=== PATIENT | female | born 1975 | race Caucasian/White ===

== ENCOUNTER 2022-11-14 15:46 | Inpatient (IN) | payer MEDICAID ==
[~2022-11-14] VITALS: Ht 170.2 cm; Wt 112.5 kg
[2022-11-14] MEDS ORDERED: LORazepam 1 MG tablet PO ONE (15:55)
[2022-11-14 16:14] LABS: BASOPHILS % (AUTO) 0.6 % (0-1); EOSINOPHILS # (AUTO) 0.1 X10'3 (0-0.9); EOSINOPHILS % (AUTO) 1.9 % (0-6); HEMATOCRIT 41.7 % (35.0-45.0); HEMOGLOBIN 13.7 g/dl (12.0-16.0); LYMPHOCYTES # (AUTO) 1.4 X10'3 (1.1-4.8); LYMPHOCYTES % (AUTO) 19.4 % (21-51); MEAN CORPUSCULAR HEMOGLOBIN 29.8 PG (27.0-31.0); MEAN CORPUSCULAR HGB CONC 32.9 g/dL (33.0-36.5); MEAN CORPUSCULAR VOLUME 90.6 FL (78-98); MEAN PLATELET VOLUME 6.4 FL (7.4-10.4); MONOCYTES # (AUTO) 0.6 X10'3 (0-0.9); MONOCYTES % (AUTO) 7.8 % (2-12); NEUTROPHILS % (AUTO) 70.3 % (42-75); PLATELET COUNT 322 X10'3 (140-440); RED CELL DISTRIBUTION WIDTH 14.3 % (11.5-14.5); WHITE BLOOD COUNT 7.1 X10'3 (4.5-11.0)
[2022-11-14 16:30] LABS: COVID19 ANTIGEN BINAX NEGATIVE (NEGATIVE)
[2022-11-14 16:31] LABS: ALANINE AMINOTRANSFERASE 11 U/L (12-78); ALBUMIN 3.4 G/DL (3.4-5.0); ALBUMIN/GLOBULIN RATIO 0.9 (1.1-1.5); ALKALINE PHOSPHATASE 102 IU/L (46-116); ANION GAP 2 (8-16); ASPARTATE AMINO TRANSFERASE 12 U/L (10-37); BILIRUBIN,TOTAL 0.3 MG/DL (0.1-1.0); BLOOD UREA NITROGEN 10 MG/DL (7-18); BUN/CREATININE RATIO 13.2 (10.0-20.0); CALCIUM 9.4 MG/DL (8.5-10.1); CHLORIDE 105 MMOL/L (99-107); CREATININE 0.76 MG/DL (0.40-0.90); GLUCOSE 108 MG/DL (70-104); POTASSIUM 4.8 MMOL/L (3.5-5.1); SODIUM 138 MMOL/L (135-145); TOTAL CARBON DIOXIDE 31.5 MMOL/L (24-32); TOTAL PROTEIN 7.3 G/DL (6.4-8.2); eCRCL 85 ML/MIN; eGFR 81 ML/MIN
[2022-11-14 16:40] LABS: ETHANOL < 0.010 GM/DL (0.0-0.010); THYROID STIMULATING HORMONE 0.55 ulU/ml (0.34-4.50)
[2022-11-14] MEDS: OLANZapine 2.5MG tablet PO SCH (16:46)
--- NOTE | 2022-11-14 17:00 | NUR ---
pt went to use the restroom ,forgot about the urine cup ,informed the pt ua is still pending.
--- NOTE | 2022-11-14 18:44 | NUR ---
ASSUMED CARE OF PT FROM RN. PT IS SLEEPING IN THE [facility].
--- NOTE | 2022-11-14 20:15 | NUR ---
PT AWOKE, WALKED TO THE BATHROOM AND GAVE A URINE SAMPLE.
[2022-11-14 20:21] LABS: BILIRUBIN,URINE NEGATIVE (Neg); CLARITY,URINE CLEAR (Clear); COLOR,URINE STRAW (Yellow); GLUCOSE, URINE NEGATIVE (Neg); KETONES,URINE NEGATIVE (Neg); LEUKOCYTE ESTERASE ,URINE NEGATIVE (Neg); NITRITES, URINE NEGATIVE (Neg); OCCULT BLOOD,URINE NEGATIVE (Neg); PROTEIN,URINE NEGATIVE (Neg); URINE HCG NEGATIVE (NEG); UROBILINOGEN,URINE 0.2 E.U/dL (0.2-1.0)
[2022-11-14 20:27] LABS: UA COLLECTION TYPE CLN CATCH MIDSTREAM
[2022-11-14 20:39] LABS: URINE AMPHETAMINE SCREEN POSITIVE (Neg); URINE BARBITUATE SCREEN NEGATIVE (Neg); URINE BENZODIAZEPINES SCREEN NEGATIVE (Neg); URINE CANNABINOID SCREEN POSITIVE (Neg); URINE COCAINE SCREEN NEGATIVE (Neg); URINE METHADONE SCREEN NEGATIVE (Neg); URINE OPIATE SCREEN NEGATIVE (Neg); URINE PHENCYCLIDINE SCREEN NEGATIVE (Neg)
--- NOTE | 2022-11-14 21:00 | NUR ---
Patient was walked over to bed 25. Patient immediately went to bed and to sleep. No distress noted.
[2022-11-14] MEDS ORDERED: NO HOME MEDS CO (21:04)
--- NOTE | 2022-11-14 23:51 | NUR ---
Client is resting. Resp even and unlabored.
--- NOTE | 2022-11-15 01:30 | NUR ---
PACKET SENT TO [facility]
--- NOTE | 2022-11-15 03:59 | NUR ---
Patient is sleeping in bed. Respirations are even and nonlabored.
--- NOTE | 2022-11-15 05:31 | NUR ---
Patient continues to sleep through the night. Respirations are even and unlabored.
--- NOTE | 2022-11-15 06:39 | NUR ---
Pt resting comfortable in bed asleep. No distress noted at this time.
[2022-11-15] MEDS: OLANZapine 2.5MG tablet PO SCH (08:45)
--- NOTE | 2022-11-15 09:28 | NUR ---
Pt resting in bed comfortable. Pt took morning meds with no issues. [facility] tray arrived tech woke pt up, pt stayed laying down in bed. Breakfast tray is currently still at bedside while pt sleeps.
--- NOTE | 2022-11-15 11:33 | NUR ---
Pt resting comfortable in bed. No distress noted at this time.
--- NOTE | 2022-11-15 13:03 | NUR ---
Pt resting in bed comfortable. Lunch tray at bedside, woke pt to see if she wanted to eat. Pt stated she isnt hungry, tray left at bedside incase she changes her mind.
--- NOTE | 2022-11-15 15:24 | NUR ---
Admit note: [facility] from our ER overflow for DTS at 1505. Pt presents as tearful and anxious. She reports increasing voices that tell her she "should not be here" and that everyone would be better off." She reports a suicide attempt last week and fears she will attempt again. Pt has history of Bipolar. Addendum: 11/15/22 at 1638 by Bee Rosario RN Pt. currently denies any S/I, but scores a high risk on the [place] Suicide Risk Assessment. This was endorsed to Magno Huddleston 15min safety checks were ordered.
[2022-11-15 15:27] VITALS: BP 97/64; PULSE 70; RESP 16; TEMP 98.6; O2SAT 100
[2022-11-15] MEDS ORDERED: magnesium hydroxide 30ml (MOM) UD suspension PO PRN (15:45)
[2022-11-15] MEDS ORDERED: loperamide 2mg capsule PO PRN (15:45)
[2022-11-15] MEDS ORDERED: mag hydrox/Alum hydrox/simeth 30ml oral suspension PO PRN (15:45)
[2022-11-15 15:51] VITALS: RESP 16; O2SAT 100
[2022-11-15 19:00] VITALS: BP 106/73; PULSE 66; RESP 14; RESP 16; TEMP 99.2; O2SAT 100
--- NOTE | 2022-11-16 05:11 | NUR ---
Nursing Progress Note: Aster Problem. Pt admitted to [facility] today on 5150 from our ER overflow for DTS at 1505. Pt presents as tearful and anxious. She reports increasing voices that tell her she "should not be here" and that everyone would be better off." She reports a suicide attempt last week and fears she will attempt again. Pt has history of Bipolar. Interventions: 1:1 assessment ,establishment of rapport, therapeutic communication, active listening, ensured contract for safety, medication administration/education/monitoring, provided distraction, direction, positive reinforcement, and Q15 minute safety checks. Response: Patient was found sleeping in room at change of shift. Patient continued to self-isolate and sleep through out shift. Patient was polite and cooperative with care. Patient denies VH but acknowledges AH telling her to harm herself. Patient requested no prns and did not get up to participate in snacks or activates. Plan: Pt is in need of medication adjustment and monitoring in a safe and therapeutic environment until stable
[2022-11-16 07:00] VITALS: RESP 12; O2SAT 99
[2022-11-16 08:00] VITALS: BP 115/74; PULSE 91; RESP 12; TEMP 98.4; O2SAT 99
[2022-11-16] MEDS: OLANZapine 2.5MG tablet PO SCH (08:53)
[2022-11-16] MEDS: acetaminophen 325mg tablet PO PRN (08:54)
[2022-11-16] MEDS: nicotine 7mg patch - 24hr TD SCH (08:55)
[2022-11-16 09:00] LABS: CHOL/HDL RATIO 4.6 (0.00-4.99); CHOLESTEROL 192 MG/DL (0-200); HDL CHOLESTEROL 42 MG/DL (35-60); LDL CHOLESTEROL 121 MG/DL (50-100); TRIGLYCERIDES 93 MG/DL (20-135)
[2022-11-16 09:30] LABS: HEMOGLOBIN A1C 6.2 % (4.5-6.2)
--- NOTE | 2022-11-16 09:41 | NUR ---
Critical lab: PT is MRSA positive. Pt educated on handwashing to prevent the spread of MRSA.
--- NOTE | 2022-11-16 12:58 | NUR ---
Pt. has reddened raised bumps on her inner labia. This area was assessed by Dr. Brewer who recommends pt. shower frequently to keep area clean and no scratching area. Pt. reported understanding and pictures were taken of area and placed in pt's chart. Dr. Brewer will also be entering some other orders to assess what could possibly be causing this. Will continue to monitor pt. closely.
--- NOTE | 2022-11-16 14:50 | NUR ---
Malnutrition consult: Pt reports 34 lb or more wt loss with decreased appetite/PO intake per malnutrition risk screen with RN. No scaled wt hx in EMR, current scaled wt is appropriate and 101% IBW. Pt on a regular diet and averaging 50% PO intake of first three meals which meets 80% estimated energy needs and 100% estimated protein needs. Pt with no documented decrease in muscle strength or edema. Pt currently lacks a minimum of two criteria for malnutrition though will continue to follow and monitor s/s of malnutrition. Addendum: 11/16/22 at [address] Amended: Links added.
--- NOTE | 2022-11-16 16:47 | NUR ---
Nursing Progress Note: Problem : Pt admitted to [facility] today on 5150 from our ER overflow for DTS at 1505. Pt presents as tearful and anxious. She reports increasing voices that tell her she "should not be here" and that everyone would be better off." She reports a suicide attempt last week and fears she will attempt again. Pt has history of Bipolar. Interventions : Maintained a safe and supportive environment, ensured contract for safety, provided clear and simple instructions, provided active listening and positive encouragement, and maintained Q 15min safety checks. Response : Received pt. sleeping in bed at the beginning of the shift, she was awoken to attend breakfast in the group room and afterwards retreated back to bed where she continued to isolate throughout the shift. 1:1 was completed at bedside, pt. presents as somewhat anxious and tearful. She denies any current S/I, but endorses ongoing A/NAVARRO. Pt. states, "They're going to get me." When questioned regarding any thoughts that others may want to hurt her, pt. denies this and stated, "No, the voices are the only ones that want to do that." Pt. also endorses anxiety regarding being on the unit, her unknown future regarding a place to live, and worries that her dog is not being taken care of. This adjusto writer operator supervised pt. while she got numbers off her cell phone to call her friend to make sure that they were taking care of her dog and she reported contentment. Pt. was administered PRN Tylenol for a h/a with effectiveness. Pt. isolated in her room napping throughout much of the shift. Plan : Pt. requires interruption of current crisis and a safe and supportive environment.
[2022-11-16 19:00] VITALS: BP 117/69; PULSE 85; RESP 14; TEMP 98.5; O2SAT 99
--- NOTE | 2022-11-17 04:46 | NUR ---
Nursing Progress Note: Problem : Pt admitted to [facility] today on 5150 from our ER overflow for DTS at 1505. Pt presents as tearful and anxious. She reports increasing voices that tell her she "should not be here" and that everyone would be better off." She reports a suicide attempt last week and fears she will attempt again. Pt has history of Bipolar. Interventions : Maintained a safe and supportive environment, ensured contract for safety, provided clear and simple instructions, provided active listening and positive encouragement, and maintained Q 15min safety checks. Response : Patient was found laying in bed at beginning of shift. Patient eventually left room and sat quietly in community room. Patient continued to self isolate and spoke very little to nurse. Patient did state she was hearing voices and was hoping being out of her room would help. Patient also acknowledged having suicidal ideations. Patient did not requested any prns. Plan : Pt. requires interruption of current crisis and a safe and supportive environment.
[2022-11-17 07:00] VITALS: RESP 14; O2SAT 100
[2022-11-17 08:00] VITALS: BP 110/70; PULSE 76; RESP 14; TEMP 98.4; O2SAT 100
[2022-11-17] MEDS: OLANZapine 2.5MG tablet PO SCH (08:32)
[2022-11-17] MEDS: nicotine 7mg patch - 24hr TD SCH (08:33)
[2022-11-17] MEDS: acetaminophen 325mg tablet PO PRN ×2 (08:34→20:27)
[2022-11-17] MEDS ORDERED: ESCITALOPRAM OXALATE 5 MG TABLET PO ONE (11:00)
--- NOTE | 2022-11-17 14:41 | NUR ---
Nursing Progress Note: Problem : Pt admitted to [facility] today on 5150 from our ER overflow for DTS at 1505. Pt presents as tearful and anxious. She reports increasing voices that tell her she "should not be here" and that everyone would be better off." She reports a suicide attempt last week and fears she will attempt again. Pt has history of Bipolar. Interventions : Maintained a safe and supportive environment, ensured contract for safety, provided clear and simple instructions, provided active listening and positive encouragement, encouraged participation on the unit, and maintained Q 15min safety checks. Response : Received pt. sleeping in bed at the beginning of the shift, she was awoken to attend breakfast in the group room and afterwards retreated back to bed as is her routine. 1:1 was completed at bedside, pt. presents as cooperative, anxious, tearful, guarded, and isolative. She continues to deny any S/I, but endorses ongoing A/NAVARRO. When questioned by this senior mortgage underwriter regarding the content of these voices, pt. stated tearfully, "They say you guys aren't going to help me and I'll have to go back to the same place." This senior mortgage underwriter provided active listening and positive encouragement to pt. regarding working with her social economist on Saturday to find possible alternate housing and she reported contentment. Pt. stated, "I just want to go get my dog and get out of there." Pt. was administered PRN Tylenol for a h/a with effectiveness. She again isolated in her room napping throughout much of the shift. Pt. was provided ongoing education on handwashing r/t MRSA positive nasal swab. Plan : Pt. requires medication adjustments and a safe and supportive environment.
[2022-11-17 19:30] VITALS: RESP 16; O2SAT 95
[2022-11-17 20:15] VITALS: BP 106/80; PULSE 87; RESP 16; TEMP 99.1; O2SAT 99
[2022-11-17] MEDS: traZODone 50mg tablet PO SCH (20:27)
[2022-11-17] MEDS: PALIPERIDONE 3 MG TAB.ER.24 PO SCH (20:27)
[2022-11-17] MEDS: LORazepam 0.5 MG tablet PO PRN (20:27)
--- NOTE | 2022-11-18 05:03 | NUR ---
Nursing Progress Note: Problem : Pt admitted to [facility] on 5150 from our ER overflow for DTS at 1505. Pt presents as tearful and anxious. She reports increasing voices that tell her she "should not be here" and that everyone would be better off." She reports a suicide attempt last week and fears she will attempt again. Pt has history of Bipolar. Interventions : Maintained a safe and supportive environment, ensured contract for safety, provided clear and simple instructions, provided active listening and positive encouragement, encouraged participation on the unit, and maintained Q 15min safety checks. Response : Upon turn of shift noted patient lying in bed sleeping. During 1:1 patient denies having SI, HI and VH. AH noted but reports, not as much as they were but they wake me up. Patient reports that when the voices talk, in her head she stomps her feet in her mind and screams at them to stop. No voices this shift. Patient appears to be tired and expresses wanting to sleep a lot. Informed nurse that she lives with her ex gf and its not a good situation. Slept well this shift. Compliant with HS meds. PRN Ativan and Desyrel. Nicotine patch removed. Will continue to monitor. Plan : Pt. requires medication adjustments and a safe and supportive environment.
[2022-11-18] MEDS: OLANZapine 2.5MG tablet PO SCH (07:43)
[2022-11-18] MEDS: nicotine 7mg patch - 24hr TD SCH (07:43)
[2022-11-18] MEDS: ESCITALOPRAM OXALATE 5 MG TABLET PO SCH (07:43)
[2022-11-18 08:14] VITALS: BP 119/87; PULSE 78; RESP 16; TEMP 98.2; O2SAT 99
--- NOTE | 2022-11-18 14:06 | NUR ---
Nursing Progress Note: Problem : [facility]150 from our ER overflow for DTS at 1505. Pt presents as tearful and anxious. She reports increasing voices that tell her she "should not be here" and that everyone would be better off." She reports a suicide attempt last week and fears she will attempt again. Pt has history of Bipolar. Interventions : Maintained a safe and supportive environment, ensured contract for safety, provided clear and simple instructions, provided active listening and positive encouragement, encouraged participation on the unit, and maintained Q 15min safety checks. Response : Pt asleep at change of shift. Pt has 5250 written today. Pt is calm accepting the paperwork. Pt denies any medical issues today. Pt spends more time outside of room in the group room today than previous days. Pt continues feeling depressed and feels scared due to her voices. Plan : Pt. requires medication adjustments and a safe and supportive environment.
[2022-11-18] MEDS: LORazepam 0.5 MG tablet PO PRN (16:57)
[2022-11-18 19:45] VITALS: RESP 16; O2SAT 99
[2022-11-18] MEDS: PALIPERIDONE 3 MG TAB.ER.24 PO SCH (19:46)
[2022-11-18] MEDS: traZODone 50mg tablet PO SCH (19:46)
[2022-11-18 20:00] VITALS: TEMP 98.8
[2022-11-18 21:28] VITALS: BP 107/70; PULSE 102; RESP 16; TEMP 98.8; O2SAT 99
--- NOTE | 2022-11-19 04:11 | NUR ---
Nursing Progress Note: Problem : Pt admitted to [facility] today on 5150 from our ER overflow for DTS at 1505. Pt presents as tearful and anxious. She reports increasing voices that tell her she "should not be here" and that everyone would be better off." She reports a suicide attempt last week and fears she will attempt again. Pt has history of Bipolar. Interventions : Maintained a safe and supportive environment, ensured contract for safety, provided clear and simple instructions, provided active listening and positive encouragement, encouraged participation on the unit, and maintained Q 15min safety checks. Response : Upon arrival to shift noted patient patient lying in bed sleeping. Hair disheveled During 1:1 denies SI, HI, and VH. Reports the AH are present and are telling her, Im mad. Theyre going to help me. You shouldnt be alive. Reports being able to shut the voices down by telling them to stop. Med compliant. No PRNs given. Nicotine patch removed. Slept well this shift. Will continue to monitor. Plan : Pt. requires medication adjustments and a safe and supportive environment.
[2022-11-19 07:00] VITALS: RESP 17; O2SAT 100
[2022-11-19 08:00] VITALS: BP 115/76; PULSE 84; RESP 17; TEMP 97.8; O2SAT 100
[2022-11-19] MEDS: ESCITALOPRAM OXALATE 5 MG TABLET PO SCH (08:23)
[2022-11-19] MEDS: nicotine 7mg patch - 24hr TD SCH (08:23)
[2022-11-19] MEDS: OLANZapine 2.5MG tablet PO SCH (08:23)
[2022-11-19] MEDS: LORazepam 0.5 MG tablet PO PRN ×2 (12:45→20:30)
--- NOTE | 2022-11-19 13:47 | NUR ---
5250 upheld for DTS
--- NOTE | 2022-11-19 14:46 | NUR ---
Aster requested assistance with housing. Informed her of [facility] as an option upon discharge. She was agreeable to a referral. Completed and sent [facility] referral. VIVIENNE Brandt
--- NOTE | 2022-11-19 15:43 | NUR ---
RN TC: Pt requesting lower carb diet and MD agreeable RN requests RD input. Noted pt A1C 6.2% which appears to be taken after eating breakfast. YANIQUE d/w RN recommends not restricting CHO intake given A1C and last Glu check 11/14 108mg/dl but since pt/MD requests carb controlled diet would be appropriate given current ~75-100% intake trends. Addendum: 11/19/22 at [address] Amended: Links added.
--- NOTE | 2022-11-19 16:37 | NUR ---
Nursing Progress Note: Aster Problem: [facility]150 from our ER overflow for DTS at 1505. Pt presents as tearful and anxious. She reports increasing voices that tell her she "should not be here" and that everyone would be better off." She reports a suicide attempt last week and fears she will attempt again. Pt has history of Bipolar. Interventions: Maintained a safe and supportive environment, ensured contract for safety, provided clear and simple instructions, provided active listening and positive encouragement, encouraged participation on the unit, and maintained Q 15min safety checks. Response: Received patient resting in bed with eyes closed, respirations even and unlabored. Patient was compliant with all scheduled medication this shift, PRN Ativan requested and administered prior to hearing. 5250 upheld today, she appeared to be accepting of this. Patient denies SI/HI and visual hallucinations but she endorses voices. Observed very emotional regarding this topic. She stated that she lives at home with her girlfriend and her girlfriends new girlfriend, she does not want to go back home, I cannot go back home, the voices will kill me there. She reports, I [facility]. rn women services in to see patient this shift assisting with housing. Patient appears disheveled, shower and personal hygiene encouraged, but not accepted. Patient did brush her hair. Noted up in community room for group, meals, and snacks. She is social with peers and is pleasant. Plan: Pt. requires medication adjustments and a safe and supportive environment.
--- NOTE | 2022-11-19 17:39 | NUR ---
HAMMER DRIVER documentation: I have reviewed all interventions, assessments performed and documented by CHANELL Aponte.
[2022-11-19 19:13] VITALS: RESP 16
[2022-11-19 20:00] VITALS: BP 125/83; PULSE 84; RESP 18; TEMP 98.1; O2SAT 100
[2022-11-19] MEDS: PALIPERIDONE 3 MG TAB.ER.24 PO SCH (20:30)
[2022-11-19] MEDS: traZODone 50mg tablet PO SCH (20:30)
--- NOTE | 2022-11-20 05:37 | NUR ---
Nursing Progress Note: Problem: [facility]150 from our ER overflow for DTS at 1505. Pt presents as tearful and anxious. She reports increasing voices that tell her she "should not be here" and that everyone would be better off." She reports a suicide attempt last week and fears she will attempt again. Pt has history of Bipolar. Interventions: Maintained a safe and supportive environment, ensured contract for safety, provided clear and simple instructions, provided active listening and positive encouragement, encouraged participation on the unit, and maintained Q 15min safety checks. Response: Upon turn of shift noted patient in BR. During 1:1 assessment noted to have better grooming and hygiene than previous day and wearing clean street clothes. Patient noted to have a bright affect. Reports that she spoke to her daughter for first time in 5 years and she told her that she could come home to her house. Patient reports feeling very happy about this. Denies SI, HI or VH. Endorses AH, reports being able to shut down bad thoughts more easily. Reports that she will be staying here longer which she is happy about as she want to get better. Reports that her counselor is not friendly and not helpful. According to MD noted today SS will be looking for resources for patient. Patient was happy about attending group today. She reported it was really beneficial to help her, with my triggers. Reports it being a much better day and that the [facility] is helping her. Med compliant. PRN Ativan administered. Nicotine patch removed. Slept well this shift. Will continue to monitor. Plan: Pt. requires medication adjustments and a safe and supportive environment.
[2022-11-20 07:00] VITALS: RESP 16; O2SAT 100
[2022-11-20 07:00] LABS: HBSAG SCREEN Negative (Negative); HEP B CORE AB, IGM Negative (Negative); HEP B CORE AB, TOT Negative (Negative); HEP B SURF AB Non Reactive (.)
[2022-11-20 08:00] VITALS: BP 126/92; PULSE 89; RESP 16; TEMP 98.6; O2SAT 100
[2022-11-20] MEDS: ESCITALOPRAM OXALATE 5 MG TABLET PO SCH (08:43)
[2022-11-20] MEDS: nicotine 7mg patch - 24hr TD SCH (08:43)
[2022-11-20] MEDS: LORazepam 0.5 MG tablet PO PRN ×2 (13:36→18:47)
[2022-11-20] MEDS: acetaminophen 325mg tablet PO PRN ×2 (13:37→18:47)
--- NOTE | 2022-11-20 13:50 | NUR ---
Pt. attended group today. VALDO RasmussenW
--- NOTE | 2022-11-20 16:41 | NUR ---
Initial: Pt admit w/ major depressive symptoms and auditory hallucinations per EMR. PO improving past ~3.5 days to mostly 100% avg meals up from initial 25% currently meeting estimated needs. Pt changed to carb controlled diet 11/19 per request; still meeting estimated needs. LBM 11/19. No nutrition interventions at this time. Will continue to follow. Rec: 1. continue carb controlled diet per pt request 2. bowel care per rx 3. weekly wt Addendum: 11/20/22 at [address] Amended: Links added.
--- NOTE | 2022-11-20 17:43 | NUR ---
Nursing Progress Note: Aster Problem : Pt admitted to [facility] today on 5150 from our ER overflow for DTS at 1505. Pt presents as tearful and anxious. She reports increasing voices that tell her she "should not be here" and that everyone would be better off." She reports a suicide attempt last week and fears she will attempt again. Pt has history of Bipolar. Interventions : Maintained a safe and supportive environment, ensured contract for safety, provided clear and simple instructions, provided active listening and positive encouragement, encouraged participation on the unit, and maintained Q 15min safety checks. Response : : Received Pt in bed sleeping w/o distress at the beginning of this shift. Woke her for vitals and she was pleasant and cooperative. She woke for breakfast and well at all meals and snack. Pt was pleasant and cooperative in interactions and was visible on unit. Pt socialized a bit and was able to make her needs known appropriately. She showered in the morning and received PRN meds for anxiety once this shift. Denies SI, HI or VH. Endorses AH. Pt feels staying here is helping her and she wants to get better and is utilizing groups and safe environement. Plan : Pt. requires medication adjustments and a safe and supportive environment.
[2022-11-20] MEDS ORDERED: naproxen 500mg tablet PO ONE (19:10)
[2022-11-20 19:24] VITALS: BP 138/73; PULSE 85; RESP 18; TEMP 97.9; O2SAT 100
[2022-11-20] MEDS: PALIPERIDONE 3 MG TAB.ER.24 PO SCH (20:46)
[2022-11-20] MEDS: traZODone 50mg tablet PO SCH (20:46)
[2022-11-20] MEDS: methyl salicylate/menthol cream 57gm TP SCH (20:47)
--- NOTE | 2022-11-21 03:11 | NUR ---
Nursing Progress Note: Aster Problem : Pt admitted to [facility] today on 5150 from our ER overflow for DTS at 1505. Pt presents as tearful and anxious. She reports increasing voices that tell her she "should not be here" and that everyone would be better off." She reports a suicide attempt last week and fears she will attempt again. Pt has history of Bipolar. Interventions : Maintained a safe and supportive environment, ensured contract for safety, provided clear and simple instructions, provided active listening and positive encouragement, encouraged participation on the unit, and maintained Q 15min safety checks. Response : Patient is pleasant and cooperative with care; compliant with medication. PRNs Ativan for anxiety and Tylenol for pain. One time order for Naproxen provided as Tylenol has been ineffective for R shoulder pain (starting around her scapula) "shooting all the way down" to her index and middle fingers. Bengay was started this shift with positive effect and cold compresses provided as needed. Nicotine patch was removed. Patient denied SI, HI, A/VH; no apparent delusions expressed. Patient mostly isolative to her room but social with staff and her roommate. Patient provided HS snack prior to bed; observed sleeping and does not appear to be having difficulty. Plan : Pt. requires medication adjustments and a safe and supportive environment.
--- NOTE | 2022-11-21 04:43 | NUR ---
STATIC BALANCER documentation: I have reviewed interventions, assessments performed and documented by Ele LUA.
[2022-11-21 07:00] VITALS: RESP 16; O2SAT 100
[2022-11-21] MEDS: naproxen 500mg tablet PO SCH ×2 (07:52→17:52)
[2022-11-21] MEDS: nicotine 7mg patch - 24hr TD SCH (07:52)
[2022-11-21] MEDS: ESCITALOPRAM OXALATE 5 MG TABLET PO SCH (07:52)
[2022-11-21] MEDS: methyl salicylate/menthol cream 57gm TP SCH ×3 (07:53→20:47)
[2022-11-21 08:00] VITALS: BP 116/65; PULSE 68; RESP 16; TEMP 97.7; O2SAT 100
[2022-11-21] MEDS: acetaminophen 325mg tablet PO PRN ×2 (13:28→20:39)
[2022-11-21] MEDS: LORazepam 0.5 MG tablet PO PRN (13:41)
--- NOTE | 2022-11-21 14:09 | NUR ---
Pt. was transported in a wheel chair accompanied by staff and security to receive an ordered MRI of her C spine r/t chronic pain. Pt. was medicated with Ativan approximately 30 minuets prior to going per reported claustrophobia. Pt's nicotine patch was also removed. Addendum: 11/21/22 at 1444 by Bee Rosario RN Pt. returned to the unit accompanied by staff and security at this time.
--- NOTE | 2022-11-21 15:03 | NUR ---
Pt's MRI results are back and were endorsed to Dr. Stoll. He examined the pt. and will be putting in additional orders at this time.
--- NOTE | 2022-11-21 15:06 | NUR ---
Pt. 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 She denies any pain or irritation at this area and redness does appear to be decreasing, picture was taken and placed in pt's chart. This was endorsed to Dr. Sanchez and received orders to obtain a wound culture of the area and then start pt. on Valtrex 500mg TID r/t suspected infection. Pt. tolerated the wound culture well, and per lab, culture will be sent out and will take approximately two days to come back. Addendum: 11/21/22 at 1519 by Bee Rosario RN This story writer spoke to infection control who reports that pt. does not need to be on isolation for a possible herpes infection, standard precautions with good handwashing are sufficient. Will provide education to pt.
--- NOTE | 2022-11-21 15:17 | NUR ---
Pt. attended group today. VALDO RasmussenW
--- NOTE | 2022-11-21 16:02 | NUR ---
DISCHARGE PLANNING Aster reported she plans on discharging to her daughter's home in [place], outside of [place]. She requested the hospital pay for a plane ticket. Informed her this has to get approved by admin. She reported she will follow up with her daughter's doctor and she seems to think she will be able to get insurance within 3 days. Researched plane tickets and they are in the $300 plus range for a one way ticket. [employer] or [employer] will be more reasonable more hernandez. VIVIENNE Brandt
[2022-11-21] MEDS ORDERED: iohexol 300 MG/1 ML 50ml polymer ONE (16:33)
[2022-11-21] MEDS ORDERED: iohexol 300mg/ml 100ml inj. ONE (16:33)
--- NOTE | 2022-11-21 16:37 | NUR ---
A 20 gauge IV was started in pt's right antecubital area by this senior writer per ordered chest and bilateral neck CTs with contrast. Pt. tolerated this procedure well and IV is patent and flushes easily.
--- NOTE | 2022-11-21 17:13 | NUR ---
At approximately 1655, pt. was accompanied by this adjusto writer operator and security to CT scan. She tolerated the procedure well and upon returning the the IV was removed frp, her right AC area.
--- NOTE | 2022-11-21 17:31 | NUR ---
Nursing Progress Note: Problem : Pt admitted to [facility] today on 5150 from our ER overflow for DTS at 1505. Pt presents as tearful and anxious. She reports increasing voices that tell her she "should not be here" and that everyone would be better off." She reports a suicide attempt last week and fears she will attempt again. Pt has history of Bipolar. Interventions : Maintained a safe and supportive environment, ensured contract for safety, provided clear and simple instructions, provided active listening and positive encouragement, encouraged participation on the unit, and maintained Q 15min safety checks. Response : Received pt. sleeping in bed at the beginning of the shift, she awoke to attend breakfast in the Group Room. 1:1 was completed afterwards at bedside, pt. presents as cooperative with a blunted affect. She continues to deny any S/I, and states, "I haven't heard the voices in two days now." Pt. does endorse some anxiety and PRN Ativan was administered with effectiveness. She talks about her upcoming discharge. Pt reports she hopes to discharge Saturday and plans to go stay with her daughter who lives in [place]. Pt. was observed to be interacting appropriately with others throughout the shift. She was provided ongoing education on handwashing r/t MRSA positive nasal swab. Plan : Pt. requires medication adjustments and a safe and supportive environment.
[2022-11-21] MEDS: NICOTINE POLACRILEX 2 MG LOZENGE BC PRN ×2 (18:01→20:34)
[2022-11-21 19:18] VITALS: BP 129/76; PULSE 87; RESP 16; TEMP 99; O2SAT 100
[2022-11-21] MEDS: traZODone 50mg tablet PO SCH (20:33)
[2022-11-21] MEDS: valacyclovir 500mg tablet PO SCH (20:33)
[2022-11-21] MEDS: PALIPERIDONE 3 MG TAB.ER.24 PO SCH (20:33)
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
--- NOTE | 2022-11-22 05:31 | NUR ---
LINING MECHANIC documentation: I have reviewed and agree with all interventions, assessments performed and documented by Nikhil Underwood LVN.
[2022-11-22 07:00] VITALS: RESP 16; O2SAT 99
[2022-11-22 08:00] VITALS: BP 109/57; PULSE 86; RESP 16; TEMP 99; O2SAT 99
[2022-11-22] MEDS: methyl salicylate/menthol cream 57gm TP SCH ×3 (08:22→21:00)
[2022-11-22] MEDS: nicotine 7mg patch - 24hr TD SCH (08:33)
[2022-11-22] MEDS: naproxen 500mg tablet PO SCH ×2 (08:33→17:22)
[2022-11-22] MEDS: valacyclovir 500mg tablet PO SCH ×3 (08:33→20:10)
[2022-11-22] MEDS: ESCITALOPRAM OXALATE 5 MG TABLET PO SCH (08:33)
[2022-11-22] MEDS: gabapentin 100mg capsule PO SCH ×3 (08:33→20:10)
[2022-11-22] MEDS: LORazepam 0.5 MG tablet PO PRN (12:52)
[2022-11-22] MEDS: acetaminophen 325mg tablet PO PRN (13:48)
[2022-11-22] MEDS: polyvinyl alcohol ophthalmic drops 15ml bottle EACHEYE PRN (14:58)
--- NOTE | 2022-11-22 15:02 | NUR ---
Called Aster's daughter, Mundo Iqbal (ph# [phone]), to confirm that Aster can discharge to her home in [place]. Mundo reported Aster is welcome in her home whenever she discharges. VIVIENNE Brandt
--- NOTE | 2022-11-22 16:18 | NUR ---
Nursing Progress Note: Problem : Pt admitted to [facility] today on 5150 from our ER overflow for DTS at 1505. Pt presents as tearful and anxious. She reports increasing voices that tell her she "should not be here" and that everyone would be better off." She reports a suicide attempt last week and fears she will attempt again. Pt has history of Bipolar. Interventions : Maintained a safe and supportive environment, ensured contract for safety, provided clear and simple instructions, provided active listening and positive encouragement, encouraged participation on the unit, and maintained Q 15min safety checks. Response : Received pt. sleeping in bed at the beginning of the shift, she awoke and was somewhat irritable due to the chronic pain in her right shoulder. Pt. received a new order for Gabapentin to help manage the pain and reported contentment. She attended breakfast in the Group Room and 1:1 was completed afterwards at bedside. Pt. presents with an increasingly animated affect. She denies any current S/I or depression and states, "I feel better than I have in years! I'm the only voice in my head right now." Pt. then continued on to talk about how she used to believe that everyone was talking negatively about her, and the voices in her head were so negative. Pt. reports that she really believes the Invega is helping her and she is hopeful and looking forward to the future and seeing her daughter and grand kids. Pt. was observed to be interacting appropriately with others throughout the shift and attended group. She was provided ongoing education on handwashing r/t MRSA positive nasal swab and possible herpes infection. Pt. continues on Valtrex and was also started on Amoxicillin for dental caries. Plan : Pt. continues to require a safe and supportive environment.
[2022-11-22] MEDS: amoxicillin 250mg capsule PO SCH (16:30)
[2022-11-22 19:42] VITALS: BP 119/75; PULSE 75; RESP 16; TEMP 98.7; O2SAT 99
[2022-11-22] MEDS: traZODone 50mg tablet PO SCH (20:10)
[2022-11-22] MEDS: PALIPERIDONE 3 MG TAB.ER.24 PO SCH (20:10)
--- NOTE | 2022-11-22 21:43 | NUR ---
Pt reports burning sensation from right shoulder to right hand has improved but numbness to right hand still persists. Addendum: 11/22/22 at 2151 by Nikhil Espinosa LVN, LVN Amended: Links added.
[2022-11-23] MEDS: amoxicillin 250mg capsule PO SCH ×4 (00:59→23:57)
[2022-11-23] MEDS: polyvinyl alcohol ophthalmic drops 15ml bottle EACHEYE PRN ×3 (00:59→20:20)
--- NOTE | 2022-11-23 05:00 | NUR ---
Nursing Progress Note Aster Hamm: Problem : [facility] our ER overflow for DTS at 1505. Pt presents as tearful and anxious. She reports increasing voices that tell her she "should not be here" and that everyone would be better off." She reports a suicide attempt last week and fears she will attempt again. Pt has history of Bipolar. Interventions : Maintained a safe and supportive environment, ensured contract for safety, provided clear and simple instructions, provided active listening and positive encouragement, encouraged participation on the unit, and maintained Q 15min safety checks. Response : Pt received in day room. Pt was sitting with peers. Pt agreeable to 1:1 assessment. Pt cooperative. Pt denies A/V hallucination. Pt denies suicidal/ Homicidal ideation. Pt happy with current POC. Pt verbalizes This is the best she has felt in 8 years. I feel more like myself. Pt reported the current medication regiment is effective and able to distinguish her voice as compared to 3 voices she has battled with prior. She states she can walk down the hilliard and not feel like people are voicing negative things toward her. Pt happy about future discharge plans to [place]. She stated she will be able to reconnect her support system in which has been missing here in [place]. She will be living with her daughter. She looks forward to connecting with her grandchildren. Sr. Vendor Management Associate reinforced continuing her medication regiment outside of the [facility] facility. Pt has prior experience with securing medical insurance in [place] and has already begun the process by seeking a Psychiatrist. Pt reported she will be arriving in [place] by either bus or train. Gabapentin is effective for pt burning sensation but still experiences numbness on R hand digits 2 through 4. Per MD notes, Pt will need to follow up with Neurosurgery outpatient if discharged. Pt. continues on Valtrex and was also started on Amoxicillin for dental caries. Pt provided oral care supplies. Pt interacts well with peers and staff. Plan : Pt. requires medication adjustments and a safe and supportive environment.
[2022-11-23 07:00] VITALS: BP 115/82; PULSE 88; RESP 12; TEMP 98.5; O2SAT 98; O2SAT 99
[2022-11-23] MEDS: methyl salicylate/menthol cream 57gm TP SCH ×3 (08:18→20:20)
[2022-11-23] MEDS: nicotine 7mg patch - 24hr TD SCH (08:18)
[2022-11-23] MEDS: naproxen 500mg tablet PO SCH ×2 (08:19→17:57)
[2022-11-23] MEDS: ESCITALOPRAM OXALATE 5 MG TABLET PO SCH (08:20)
[2022-11-23] MEDS: valacyclovir 500mg tablet PO SCH ×3 (08:20→20:20)
[2022-11-23] MEDS: gabapentin 100mg capsule PO SCH ×3 (08:20→20:20)
[2022-11-23] MEDS ORDERED: NICO-631 TD (12:05)
[2022-11-23] MEDS ORDERED: GABA300C PO (12:05)
[2022-11-23] MEDS ORDERED: AMOX500C2 PO (12:05)
[2022-11-23] MEDS ORDERED: VALA500T41 PO (12:05)
[2022-11-23] MEDS ORDERED: PALI3TAB5 PO (12:05)
[2022-11-23] MEDS ORDERED: POLY15DR13 EACHEYE (12:05)
[2022-11-23] MEDS ORDERED: ESCI-8 PO (12:07)
[2022-11-23] MEDS ORDERED: QUET25TA36 PO (12:07)
[2022-11-23] MEDS ORDERED: QUET-1 PO (12:07)
--- NOTE | 2022-11-23 15:14 | NUR ---
DISCHARGE PLANNING Aster would like to take a bus to [place] to go live with her daughter. Her medications will be delivered from [facility] on Saturday. [facility] Drilling Field Operator will request funds for bus ticket from admin on Saturday. VIVIENNE Brandt
[2022-11-23] MEDS: LORazepam 0.5 MG tablet PO PRN (16:00)
--- NOTE | 2022-11-23 17:37 | NUR ---
Nursing Progress Note: Problem : Pt admitted to [facility] today on 5150 from our ER overflow for DTS at 1505. Pt presents as tearful and anxious. She reports increasing voices that tell her she "should not be here" and that everyone would be better off." She reports a suicide attempt last week and fears she will attempt again. Pt has history of Bipolar. Interventions : Maintained a safe and supportive environment, ensured contract for safety, provided clear and simple instructions, provided active listening and positive encouragement, encouraged participation on the unit, and maintained Q 15min safety checks. Response : Patient sleeping in bed at change of shift. Patient awakens and takes her medications without incident. Patient has been socializing in the community room this shift. Patient states that she is not suicidal, but she said, the more we talk about it, its making me think about it again. Patient was very supportive roommate, in that when the roommate would say something negative about herself, she would make her roommate come up with three positive things about herself. Patient reports that she has not heard voices for five days. Patient is excited about this. Patient requested an anxiety medication and Ativan 0.5 mg was administered with good effect. After this, patient was wearing headphones and dancing down the hallway. Plan : Pt. continues to require a safe and supportive environment.
[2022-11-23 19:05] VITALS: BP 126/80; PULSE 80; RESP 15; TEMP 98.2; O2SAT 100
[2022-11-23] MEDS: acetaminophen 325mg tablet PO PRN (19:44)
[2022-11-23] MEDS: PALIPERIDONE 3 MG TAB.ER.24 PO SCH (20:19)
[2022-11-23] MEDS: traZODone 50mg tablet PO SCH (20:20)
--- NOTE | 2022-11-24 05:03 | NUR ---
Nursing Progress Note Aster Hamm: Problem : [facility] from our ER overflow for DTS at 1505. Pt presents as tearful and anxious. She reports increasing voices that tell her she "should not be here" and that everyone would be better off." She reports a suicide attempt last week and fears she will attempt again. Pt has history of Bipolar. Interventions : Maintained a safe and supportive environment, ensured contract for safety, provided clear and simple instructions, provided active listening and positive encouragement, encouraged participation on the unit, and maintained Q 15min safety checks. Response : Pt received in day room. Pt was walking out toward room. 1:1 assessment performed. Pt denies A/V hallucination. Pt denies suicidal/ Homicidal ideation. Pt LBM today. Pt reports her D/C date is Saturday. She will be taking a taxi to the bus stop here in [place] then will be traveling to [place] thereafter. Pt requesting a pill box to properly keep track of meds upon discharge. Pt. continues on Valtrex and Amoxicillin for dental caries. Pt provided mouthwash per patient requests. Pt interacts well with peers and staff. Plan : Pt. requires medication adjustments and a safe and supportive environment.
[2022-11-24 07:00] VITALS: RESP 16; O2SAT 100
[2022-11-24 07:15] VITALS: BP 131/78; PULSE 74; RESP 16; TEMP 98.3; O2SAT 100
[2022-11-24] MEDS: amoxicillin 250mg capsule PO SCH ×3 (08:00→23:19)
[2022-11-24] MEDS: nicotine 7mg patch - 24hr TD SCH (08:00)
[2022-11-24] MEDS: ESCITALOPRAM OXALATE 5 MG TABLET PO SCH (08:00)
[2022-11-24] MEDS: valacyclovir 500mg tablet PO SCH ×3 (08:00→20:56)
[2022-11-24] MEDS: gabapentin 100mg capsule PO SCH ×3 (08:00→20:56)
[2022-11-24] MEDS: methyl salicylate/menthol cream 57gm TP SCH ×3 (08:00→21:04)
[2022-11-24] MEDS: naproxen 500mg tablet PO SCH ×2 (08:30→17:39)
[2022-11-24] MEDS: acetaminophen 325mg tablet PO PRN (12:37)
[2022-11-24] MEDS: LORazepam 0.5 MG tablet PO PRN ×2 (16:13→21:03)
--- NOTE | 2022-11-24 18:01 | NUR ---
Nursing Progress Note: Problem : [facility]150 from our ER overflow for DTS at 1505. Pt presents as tearful and anxious. She reports increasing voices that tell her she "should not be here" and that everyone would be better off." She reports a suicide attempt last week and fears she will attempt again. Pt has history of Bipolar. Interventions : Maintained a safe and supportive environment, ensured contract for safety, provided clear and simple instructions, provided active listening and positive encouragement, encouraged participation on the unit, and maintained Q 15min safety checks. Response: Received patient sleeping in bed at change of shift. Patient awakens in an irritable mood, because all the headsets are in use. Patient is medication compliant. One to one performed in patients room. Patient denies SI, A/V/H. Patient is excited about leaving on Saturday and going to [place] to her daughters house. Patient has not seen her grandchildren in a very long time and wants to be in their lives and have her daughter be able to trust her with them. RN spoke with patient about drugs/alcohol treatment and recovery. Patients daughter wants her to go to , and is willing to go the first couple of times with her until she is comfortable. Patient states that she has no desire to use drugs again, and can clearly see how it has devastated her life. There are churches within walking distance to her daughters house. Patient complaining of right elbow and shoulder pain. Dr. Powell suggested we try an arm immobilizer, patient wore this for a while, but then took it off at 16:00 when she took an Ativan and went and laid down for a nap. Patient was ordered [place] nasal spray for dry sinuses. Plan : Pt. continues to require a safe and supportive environment.
[2022-11-24 20:00] VITALS: BP 141/86; PULSE 83; RESP 18; TEMP 98; O2SAT 99
[2022-11-24] MEDS: salt irrigation nasal spray 45 ML SPRAY NS SCH (20:54)
[2022-11-24] MEDS: traZODone 50mg tablet PO SCH (20:56)
[2022-11-24] MEDS: PALIPERIDONE 3 MG TAB.ER.24 PO SCH (20:56)
[2022-11-24] MEDS: polyvinyl alcohol ophthalmic drops 15ml bottle EACHEYE PRN (21:04)
--- NOTE | 2022-11-25 00:08 | NUR ---
Nursing Progress Note: Aster Hamm Problem : [facility] 5150 from our ER overflow for DTS at 1505. Pt presents as tearful and anxious. She reports increasing voices that tell her she "should not be here" and that everyone would be better off." She reports a suicide attempt last week and fears she will attempt again. Pt has history of Bipolar. Interventions : Maintained a safe and supportive environment, ensured contract for safety, provided clear and simple instructions, provided active listening and positive encouragement, encouraged participation on the unit, and maintained Q 15min safety checks. Response: Received patient standing at side of bed going through her art and journal book. She was excited to show off the cover of both, which she had redecorated. She has been visiting with her roommate. Patient is medication compliant. One to one performed in patients room. Patient denies SI, A/V/H. Patient complaining of right elbow and shoulder numbness and pain, bengay. Arm immobilizer, suggested by has not been worn as she states it doesnt help. Walked several times around unit with male pt talking to him. Medications taken and pt showered. Plan : Pt. continues to require a safe and supportive environment.
[2022-11-25 07:34] VITALS: BP 160/93; PULSE 81; RESP 16; TEMP 98.5; O2SAT 98
[2022-11-25] MEDS: methyl salicylate/menthol cream 57gm TP SCH ×2 (08:30→20:03)
[2022-11-25] MEDS: polyvinyl alcohol ophthalmic drops 15ml bottle EACHEYE PRN (08:30)
[2022-11-25] MEDS: salt irrigation nasal spray 45 ML SPRAY NS SCH ×2 (08:30→20:02)
[2022-11-25] MEDS: gabapentin 100mg capsule PO SCH (08:31)
[2022-11-25] MEDS: naproxen 500mg tablet PO SCH ×2 (08:31→16:47)
[2022-11-25] MEDS: amoxicillin 250mg capsule PO SCH ×2 (08:31→16:47)
[2022-11-25] MEDS: ESCITALOPRAM OXALATE 5 MG TABLET PO SCH (08:31)
[2022-11-25] MEDS: valacyclovir 500mg tablet PO SCH ×3 (08:31→20:03)
[2022-11-25] MEDS: nicotine 7mg patch - 24hr TD SCH (08:32)
[2022-11-25] MEDS: LORazepam 0.5 MG tablet PO PRN (08:39)
[2022-11-25] MEDS ORDERED: quetiapine 100mg tablet PO PRN (12:00)
[2022-11-25] MEDS: nicotine 14mg patch - 24hr TD SCH (14:13)
[2022-11-25] MEDS: gabapentin 300mg capsule PO SCH ×2 (14:13→20:03)
[2022-11-25] MEDS ORDERED: METHYL SALICYLATE TP (15:39)
[2022-11-25] MEDS ORDERED: MENTHOL TP (15:39)
[2022-11-25] MEDS ORDERED: LORA10TA65 PO (15:39)
[2022-11-25] MEDS ORDERED: NAPR-56 PO (15:39)
[2022-11-25] MEDS: loratadine 10mg tablet PO SCH (16:47)
[2022-11-25] MEDS: QUEtiapine 25mg tablet PO PRN (16:47)
--- NOTE | 2022-11-25 18:22 | NUR ---
NURSING PROGRESS NOTE Problem : Pt was admitted to [facility] for reports of increasing voices that tell her she "should not be here" and that everyone would be better off." Pt reports a suicide attempt last week and fears she will attempt again. Pt has history of Bipolar. Interventions : Maintained a safe and supportive environment, ensured contract for safety, provided clear and simple instructions, reinforced the importance of hand hygiene r/t MRSA nasal positive, provided active listening and positive encouragement, encouraged participation on the unit, reinforced the use of coping skills to decrease anxiety, maintained Q 15min safety checks. Response: Received patient sleeping at shift change. Pt woke prior to breakfast and visited with roommate. Pt was compliant with care and medication. Pt required anti-anxiety med with med pass, stated I am anxious about my discharge, I just dont want anything to happen. Pt was switched to Seroquel for anxiety as she told provider the hydroxyzine wasnt effective. Pt will catch a [employer] bus tomorrow 11-26-22 (if discharge meds are received to unit) to [place], [place]. Pt will be living with daughter. Pt continues to complaint about elbow pain as she keeps bumping area noted some bruising and swelling. Pt given ice for swelling. Pt requires a padded dressing to assist in protecting elbow, pt states the immobilizer was too restrictive. Traffic Control Supervisor placed optifoam pad, which seemed to help. Will continue to monitor. Plan : Patient is at baseline and will be discharged Saturday or Saturday dependent on receiving discharge medication to unit.
[2022-11-25 19:00] VITALS: RESP 20; O2SAT 99
[2022-11-25] MEDS: acetaminophen 325mg tablet PO PRN (19:19)
[2022-11-25 20:00] VITALS: BP 129/75; PULSE 75; RESP 20; TEMP 97.1; O2SAT 99
[2022-11-25] MEDS: PALIPERIDONE 3 MG TAB.ER.24 PO SCH (20:03)
[2022-11-25] MEDS: quetiapine 100mg tablet PO SCH (20:03)
[2022-11-26] MEDS: amoxicillin 250mg capsule PO SCH ×3 (00:13→15:03)
--- NOTE | 2022-11-26 05:22 | NUR ---
Nursing Progress Note: Problem : Pt admitted to [facility] today on 5150 from our ER overflow for DTS at 1505. Pt presents as tearful and anxious. She reports increasing voices that tell her she "should not be here" and that everyone would be better off." She reports a suicide attempt last week and fears she will attempt again. Pt has history of Bipolar. Interventions: Maintained a safe and supportive environment, ensured contract for safety, provided clear and simple instructions, provided active listening and positive encouragement, encouraged participation on the unit, and maintained Q 15min safety checks. Response: Patient in her room, just banged her right elbow on the wall of bathroom. Requesting Tylenol for pain 5/10. Pt received 650mg and had good relief after a few hours. Pt is calm and cooperative. Pt went to sleep and did not have a snack. Pt was woken up to take her HS medications, pt. is compliant. Pt is set to discharge in morning to her daughters home in [place]. Midnight ATB given. Pt denies all mental illness symptoms. No paranoid or delusional statements made. Pt appears linear and logical. Monitor for safety q15 minutes. Plan: Pt. continues to require a safe and supportive environment.
[2022-11-26 07:54] VITALS: BP 111/80; PULSE 89; RESP 16; TEMP 98.3; O2SAT 99
[2022-11-26] MEDS: polyvinyl alcohol ophthalmic drops 15ml bottle EACHEYE PRN (08:27)
[2022-11-26] MEDS: methyl salicylate/menthol cream 57gm TP SCH ×3 (08:27→20:16)
[2022-11-26] MEDS: salt irrigation nasal spray 45 ML SPRAY NS SCH ×2 (08:27→20:16)
[2022-11-26] MEDS: loratadine 10mg tablet PO SCH (08:28)
[2022-11-26] MEDS: QUEtiapine 25mg tablet PO PRN ×2 (08:28→15:03)
[2022-11-26] MEDS: gabapentin 300mg capsule PO SCH ×3 (08:28→20:17)
[2022-11-26] MEDS: valacyclovir 500mg tablet PO SCH ×3 (08:28→20:16)
[2022-11-26] MEDS: naproxen 500mg tablet PO SCH ×2 (08:28→17:45)
[2022-11-26] MEDS: ESCITALOPRAM OXALATE 5 MG TABLET PO SCH (08:28)
[2022-11-26] MEDS: nicotine 14mg patch - 24hr TD SCH (08:30)
--- NOTE | 2022-11-26 15:01 | NUR ---
DISCHARGE PLAN-BUS LEAVES AT 9:25 PM TONIGHT Aster has a [employer] ticket for 9:25 PM tonight to [place] to live with her daughter. She should be at the bus station by 9 PM. Please cab her there. Please provide her with sack lunch and snacks as the trip is 24 hours. She also has meds that were delivered by [facility] that need to go with her. VIVIENNE Brandt
--- NOTE | 2022-11-26 16:50 | NUR ---
NURSING PROGRESS NOTE Problem : Pt was admitted to [facility] for reports of increasing voices that tell her she "should not be here" and that everyone would be better off." Pt reports a suicide attempt last week and fears she will attempt again. Pt has history of Bipolar. Interventions : Maintained a safe and supportive environment, ensured contract for safety, provided clear and simple instructions, reinforced the importance of hand hygiene r/t MRSA nasal positive, provided active listening and positive encouragement, encouraged participation on the unit, reinforced the use of coping skills to decrease anxiety, maintained Q 15min safety checks. Response: Received patient sleeping at shift change. Pt woke excited because she will be discharged today. Pt is visible on unit, compliant with care and medications. Pt will be taking the [employer] bus to [place], [place] to live with her daughter. Plan : Patient is at baseline and will be discharged Saturday or Saturday dependent on receiving discharge medication to unit.
[2022-11-26] MEDS: quetiapine 100mg tablet PO SCH (20:16)
[2022-11-26] MEDS: PALIPERIDONE 3 MG TAB.ER.24 PO SCH (20:16)
[2022-11-26] MEDS: acetaminophen 325mg tablet PO PRN (20:17)
== END 2022-11-26 20:30 | disposition home or self-care (01) | DRG 751 ==
LOC: ER 15:47 → ED HOLD 11-15 13:20 → ADULT MH 11-15 15:00
PROVIDERS: ADMIT Psychiatry & Neurology Psychiatry; ATTEND Psychiatry & Neurology Psychiatry
PROC: BW241ZZ Computerized Tomography (CT Scan) of Chest and Abdomen using Low Osmolar Contrast (ICD-10-PCS; principal; 2022-11-16)
PROC: BW2F1ZZ Computerized Tomography (CT Scan) of Neck using Low Osmolar Contrast (ICD-10-PCS; 2022-11-16)
DX: F33.2 Major depressive disorder, recurrent severe without psychotic features (principal); R45.851 Suicidal ideations; F29 Unspecified psychosis not due to a substance or known physiological condition; B00.9 Herpesviral infection, unspecified; F17.200 Nicotine dependence, unspecified, uncomplicated; R13.10 Dysphagia, unspecified; R73.03 Prediabetes; X50.0XXA Overexertion from strenuous movement or load, initial encounter; Z20.822 Contact with and (suspected) exposure to COVID-19; K02.9 Dental caries, unspecified; F19.10 Other psychoactive substance abuse, uncomplicated; F43.12 Post-traumatic stress disorder, chronic; Z63.5 Disruption of family by separation and divorce; Z79.899 Other long term (current) drug therapy; Z82.3 Family history of stroke; Z82.49 Family history of ischemic heart disease and other diseases of the circulatory system; Z83.3 Family history of diabetes mellitus; M50.10 Cervical disc disorder with radiculopathy, unspecified cervical region; R59.0 Localized enlarged lymph nodes
CPT/HCPCS: 36415; 70491; 71260; 72141; 80053; 80061; 80305; 80320; 81003; 81025; 83036; 84443; 85025; 86695; 86696; 86704; 86705; 86706; 87081; 87252; 87340; 87811; 99285; A6212; A6213; J3490; L3650; Q9967